=== PATIENT | female | born 1965 | race Caucasian/White ===

== ENCOUNTER 2016-05-09 09:36 | Day surgery (SDC) | payer BC ==
[2016-05-06 16:08] VITALS: BMI 24.4
[2016-05-09] VITALS (16 sets, daily range): BP systolic 109–127; BP diastolic 68–78; PULSE 64–75; RESP 12–21; Ht 175.3 cm; Wt 77.7 kg
[~2016-05-09] VITALS: Ht 175.3 cm; Wt 77.7 kg
[~2016-05-09 09:36] MED LIST: ROCURONIUM 50 MG INJ ONE
[2016-05-09] MEDS ORDERED: GLYCOPYRROLATE 1 MG INJ ONE (10:53)
[2016-05-09] MEDS ORDERED: ROCURONIUM 50 MG INJ ONE ×2 (10:53→14:15)
[2016-05-09] MEDS ORDERED: FENTAnyl 50 MCG/ML VIAL ONE (10:53)
[2016-05-09] MEDS ORDERED: PROPOFOL 20 ML ONE (10:53)
[2016-05-09] MEDS ORDERED: LIDOCAINE 2% (SDV) 5 ML INJ ONE ×2 (10:53→14:16)
[2016-05-09] MEDS ORDERED: NEOSTIGMINE 3 MG/3 ML SYRINGE ONE (10:53)
[2016-05-09] MEDS ORDERED: MIDAZOLAM 1 MG/ML 2 ML INJ ONE (10:53)
[2016-05-09] MEDS ORDERED: DEXAMETHASONE 4 MG/ML 1 ML INJ ONE ×2 (10:54→14:28)
[2016-05-09] MEDS ORDERED: ONDANSETRON 4 MG INJ ONE ×2 (10:55→16:12)
[2016-05-09] MEDS ORDERED: LIDOCAINE 2%/EPI 30 ML INJ ONE (10:57)
[2016-05-09] MEDS ORDERED: ROPIVACAINE 0.5 % 30 ML VIAL ONE ×3 (10:57→12:28)
[2016-05-09] MEDS ORDERED: EPHEDrine SULFATE 50 MG/5 ML SYG ONE (11:01)
[2016-05-09] MEDS ORDERED: morphine (1 MG/ML) 10ML SYRINGE IV PRN ×3 (11:30)
[2016-05-09] MEDS ORDERED: MIDAZOLAM 1 MG/ML 2 ML INJ IV PRN (11:30)
[2016-05-09] MEDS ORDERED: MEPERIDINE 25 MG INJ IV PRN (11:30)
[2016-05-09] MEDS ORDERED: HYDROmorphONE (0.2 MG/ML) 10ML SYG IV PRN ×3 (11:30)
[2016-05-09] MEDS ORDERED: DIPHENHYDRAMINE 50 MG INJ IV PRN ×2 (11:30→14:00)
[2016-05-09] MEDS ORDERED: ONDANSETRON 4 MG INJ IV PRN ×2 (11:30→14:00)
[2016-05-09] MEDS ORDERED: ATROPINE 1 MG/10 ML SYRINGE IV PRN (11:30)
[2016-05-09] MEDS ORDERED: OXYCODONE/ACETAMINOPHEN (5/325) TAB PO PRN ×2 (11:30)
[2016-05-09] MEDS ORDERED: FENTAnyl 50 MCG/ML VIAL IV PRN ×2 (11:30)
[2016-05-09] MEDS ORDERED: LABETALOL HCL 20MG INJ IV PRN (11:30)
[2016-05-09] MEDS ORDERED: EPHEDrine SULFATE 50 MG/5 ML SYG IV PRN (11:30)
[2016-05-09] MEDS ORDERED: hydrALAzine 20 MG INJ IV PRN (11:30)
[2016-05-09] MEDS ORDERED: ETOD600T PO (12:03)
[2016-05-09] MEDS ORDERED: LEVO88TA PO (12:03)
[2016-05-09] MEDS ORDERED: SULF500T11 PO (12:03)
[2016-05-09] MEDS ORDERED: NOL20 PO (12:03)
[2016-05-09] MEDS ORDERED: ABAT125S SQ (12:03)
[2016-05-09] MEDS ORDERED: POLYMYXIN/BACITRACIN 1L IRRIG ONE (12:26)
[2016-05-09 12:28] LABS: INR 1.03; PROTIME 13.5 Sec (12.2-14.2); PT RATIO 1.1
[2016-05-09] MEDS ORDERED: PROPOFOL 100 ML ONE ×2 (12:28→14:15)
[2016-05-09 12:29] LABS: PARTIAL THROMBOPLASTIN TIME 27.5 Sec (25.0-35.0)
[2016-05-09] MEDS ORDERED: CEFAZOLIN 1 GM INJ ONE (13:20)
[2016-05-09] MEDS ORDERED: HYDROmorphONE 1 MG/ML SYG IV PRN ×2 (14:00)
[2016-05-09] MEDS ORDERED: KETOROLAC 30 MG INJ IV PRN (14:00)
[2016-05-09] MEDS ORDERED: NALOXONE (0.4 MG/ML) INJ IV PRN (14:00)
[2016-05-09] MEDS ORDERED: HYDROCODONE/APAP (5/325) TAB PO PRN (14:00)
[2016-05-09] MEDS ORDERED: ACETAMINOPHEN 1000MG/100ML IV 100 ML ONE (14:16)
[2016-05-09] MEDS ORDERED: POVIDONE IODINE 10% 28.4 GM OINT ONE (14:32)
[2016-05-09] MEDS ORDERED: BACITRACIN/POLYMYXIN 28.35 GM OINT TOP ONE (16:29)
[2016-05-09] MEDS ORDERED: BACITRACIN/POLYMYXIN 0.9 GM OINT TOP ONE (16:40)
[2016-05-09] MEDS ORDERED: POLYMYXIN/BACITRACIN 1L IRRIG IRR ONE (16:40)
--- NOTE | 2016-05-09 18:16 | RADRPT ---
PROCEDURE: Intraoperative imaging of the right calcaneus with fluoroscopy. CLINICAL INDICATION: Right heel pain. Intraoperative. TECHNIQUE: 2 images of the right calcaneus were obtained in the operating room with an image inten sifier. No radiologist was in attendance. 8.3 seconds of fluoroscopy time was used. COMPARISON: No prior study is available for comparison. FINDINGS: Images demonstrate surgical instruments overlying the right calcaneus. IMPRESSION: 1. Intraoperative imaging of the right calcaneus. RPTAT: QQ .Zackary Natarajan MD, MD Date Time Electronically viewed and signed by .Zackary Natarajan MD, on 05/09/2016 18:16 .R/
[2016-05-09] MEDS ORDERED: RIVA10TA PO (18:27)
[2016-05-09] MEDS ORDERED: morphine 10 MG INJ IV PRN (18:30)
[2016-05-09] MEDS ORDERED: morphine 2 MG INJ IV PRN (18:30)
--- NOTE | 2016-05-09 18:38 | QN ---
Documentation Job number: [id number] MARIBELL CLEVELAND MD May 09, 2016 18:38
--- NOTE | 2016-05-09 19:28 | OPR ---
DATE OF OPERATION: 05/09/2016 PREOPERATIVE DIAGNOSES: 1. Right Achilles tendon rupture 5 weeks out. 2. Rheumatoid arthritis. POSTOPERATIVE DIAGNOSES: 1. Right Achilles tendon rupture, chronic, 5 weeks out. 2. Rheumatoid arthritis. OPERATION PERFORMED: 1. Right Achilles tendon rupture repair. 2. Flexor hallucis longus tendon transfer, right ankle. 3. Use of placental allograft and placement inside the wound over the Achilles tendon. 4. Use of placental allograft on top of the wound after closure with placental allograft. SURGEON: Rocky Garrett MD [employer] Surgeon: Jim Garrett MD ANESTHESIOLOGIST: Please see chart note. ANESTHESIA TYPE: General with popliteal regional block. FINDINGS: A 3.5 cm gap of Achilles tendon rupture is noted at the mid substance with frayed edges. IMPLANTS: 1. A 5.5 x 15 mm Arthrex Bio-Tenodesis screw. 2. Arthrex amnion thick placental membrane covering the Achilles tendon repair site. 3. Arthrex amnion thin amniotic membrane at the wound coverage. ESTIMATED BLOOD LOSS: Approximately 50 mL. DRAINS: None. SPECIMENS: None. TOURNIQUET TIME: 2 hours and 15 minutes. COMPLICATIONS: None. INDICATIONS: The patient is a 50-year-old female with a history of rheumatoid arthritis who sustained a right Achilles tendon rupture approximately 6 months ago that was treated nonoperatively with an adjacent PRP treatment that healed well. The patient was doing well until approximately 4-1/2 weeks ago when she tripped and fell engaging in a plantar flexion moment as well as hitting her right Achilles tendon. The patient did not seek follow up for approximately 2-1 /2 to 3 weeks after the injury, at which time an MRI determined that there was repeat rupture of the Achilles tendon. At this time, patient was indicated for surgery. The patient stopped rheumatoid medicines approximately 1 week prior to surgery. RISK NOTE: The patient was explained the risks and benefits of surgery in the patient's [place] language including, but not limited to infection, bleeding, loss of limb, loss of life, risk for future surgery, risk of injury to blood vessels, nerves, ligaments, or tendons. The patient acknowledged these risks and signed the surgical consent form. DESCRIPTION OF PROCEDURE: The patient was met in the preoperative holding area and the operative side was confirmed with both patient and the consent. The patient was brought back in the operative theater, placed prone on operative table, and all bony prominences were well padded. The patient was given preoperative regional block anesthesia as well as preoperative antibiotics. The patient was then prepped and draped in the normal sterile fashion. A timeout was taken. All parties in the room agreed it was correct patient, correct extremity, and correct procedure. Carey test confirmed at the time that it was positive for no Achilles tendon motion incontinuity. After exsanguination of the leg, Incision was made along the medial aspect of the tendon. the Achilles tendon was shown to be ruptured in the mid portion approximately 3.5 cm gap noted in the mid substance. The Achilles peritenon was opened; however, was greatly adhered to the Achilles tendon itself as well as large amount of scar tissue and adherence in the posterior aspect and anterior aspect of the Achilles. After complete debridement of the Achilles tendon and sites, plantaris was kept in place and eventually used to augment Achilles and attention was then turned towards the deep fascia opened between superficial and the deep layers. At this time, the big toe was taken through range of motion visualized and moving the FHL muscle belly. The FHL tendon was palpated while ranging the hallux in motion and care was taken while dissecting along the course of muscle belly to retract the tibial nerve, which was identified and protected and moved medially. The FHL tendon was found in a fiber osseous tunnel and, with the tendon and great toe held in maximum plantar flexion, the tendon was cut from medial to lateral avoiding any injury to the tibial nerve. Once the FHL tendon was then whipstitched with a FiberLoop suture, a tunnel was then drilled from dorsal to plantar in the posterior tuberosity of the calcaneus. With the ankle plantarflexed approximately 15 degrees, the FHL was secured with an Arthrex 5 x 15 mm Bio-Tenodesis screw that measured after drilling with approximately 6 mm drill. Tendon was passed through the bone tunnel and the FHL was tensioned through the calcaneal tunnel and secured with Bio-Tenodesis screw. The FHL muscle belly was then sutured to the anterior aspect of the Achilles tendon to provide a vascular bed for improved healing. At this time, attention was then turned back to the Achilles tendon and using a modified [place] suture with gift-box technique, the Achilles tendon was then brought back end to end and the ends were roughly approximated together as there was a great deal of tendon gapping and then they were sutured in place with the Achilles tendon approximately 15 to 20 degrees of plantar flexion. The epitendinous portion was then closed with a running 3-0 Prolene and then the wound was irrigated thoroughly. Tourniquet was brought down and hemostasis was achieved. The amniotic membrane was then placed over the Achilles tendon rupture site and sutured in place with 3-0 Vicryl at all corners. The peritenon was attempted to be repaired at the proximal and distal aspects; however, due to the adherence previously mentioned, I was unable to repair it perfectly at the mid portion since there was substantial scar tissue at that site. The wounds were then closed in layers with 3-0 Monocryl followed by 4-0 Monocryl followed by 4-0 nylon in a vertical mattress fashion. The wounds were then dressed this point with amniotic thin membrane over the incision site and then the heel was then dressed with a Xeroform, antibiotic ointment, 4x4s, and 5 ABDs and placed in a well-padded short leg splint in plantar flexion. At the end of the case, all sponge and needle counts were correct. The toes are warm and well perfused. The patient was taken to the PACU in a stable condition. No complications at this time. The patient will remain nonweightbearing for the next 6 weeks. Asst. note: An orthopedic surgeon was needed as an assistant distribution manager for this case due to the complexity of this case. The assistant distribution manager performed retraction and alignment of the achilles while foot was being held into proper position and drilling also while the foot and ankle were being held in proper position. Without a orthopedic surgeon who is an expert in surgery assisting in this case the case to be a lot longer and more complex. Thus should be compensated accordingly Dictated By: ROCKY MUÑOZ/NTS Conf#: [id number] DID#: [id number] PAUL
[2016-05-10] MEDS ORDERED: RIVAROXABAN 10 MG TABLET PO SCH (18:00)
== END 2016-05-09 18:56 | disposition home or self-care (01) ==
LOC: SDS 09:36
PROVIDERS: ATTEND Orthopaedic Surgery
DX: S86.011D Strain of right Achilles tendon, subsequent encounter (principal); X58.XXXD Exposure to other specified factors, subsequent encounter; M06.9 Rheumatoid arthritis, unspecified; E03.9 Hypothyroidism, unspecified
CPT/HCPCS: 27691; 73650; 85610; 85730; J0690; J1100; J1170; J1885; J2405; J2795; J3010; J0131; J2250; J2710

== ENCOUNTER 2017-06-12 07:01 | Day surgery (SDC) | END 2017-06-12 15:00 | disposition home or self-care (01) ==